=== PATIENT | female | born 1970 | race Caucasian/White ===

== ENCOUNTER → 2021-09-19 | Outpatient (CLI) | payer OTHER | LOC: LAB 11:27 | DX: M79.602 Pain in left arm (principal); E11.9 Type 2 diabetes mellitus without complications; E78.5 Hyperlipidemia, unspecified; I10 Essential (primary) hypertension; R79.89 Other specified abnormal findings of blood chemistry; R06.83 Snoring; Z76.89 Persons encountering health services in other specified circumstances | CPT/HCPCS: 73090 ==